=== PATIENT | female | born 1965 | race Caucasian/White ===

== ENCOUNTER 2020-11-19 15:39 | Emergency (ER) | payer OTHER ==
--- OUTSIDE RECORDS SUMMARY | 2020-11-19 15:42 | XMS REPORT | Continuity of Care Document ---
:1965 Author Organization [facility] t Address [address] [place] [address] Care Team Providers Name Role Phone Provider, Urgent Care Attending Clinician Unavailable Payers Payer Name Policy Type Policy Number Effective Date Expiration Date S ource Problems This patient has no known problems. Allergies, Adverse Reactions, Alerts Allergy Allergy Status Severity Reaction(s) Onset Inactive Treating Comm ents Source Name Type Date Date Clinician No Known DA Active U 2017-04 [facility] Allergie 2-10 Clear s 00:00: [place] 00 [facility] Medications This patient has no known medications. Procedures This patient has no known procedures. Encounters Start End Encounter Admission Attending Care Care Encounter Source Date/Time Date/Time Type Type Clinicians Facility Department ID 2020-03-18 2020-03-18 Telephone Provider, [facility] [id number] 00:00:00 00:00:00 [facility] Urgent Health [id number] Care Surgical [id number] Specialti [id number] es [address] 2020-03-16 2020-03-16 Urgent Provider, [facility] [id number] 16:11:02 16:38:49 Care [facility] Urgent Health [id number] Care [place] [id number] Professio [phone] nal 044 Office Building One Results Test Description Test Time Test Comments Results Result Comments Source D-DIMER 2018-11-26 06:09:00 Test Item Value Reference Range Interpretation Comme nts D-DIMER (test code = DDIMER) 442 ng/mLFEU 215-500 N Comment: Prothrombin 78571 genetic testFACTOR V [id number] 06:09:00 Test Item Value Reference Range Interpretation Comments FACTOR V Comment () Result: Negativ e (no mutation MUTATION (test found)Factor V Leiden is a code = FAC5M) specific mutat ion (R506Q) in thefactor V gen e that is associated with an increased risk ofvenous t hrombosis. Factor V Leiden is more resistant toina ctivation by activated prote in C. As a result, factor Vpersists in the circulation elías ding to a mildhypercoagul able state. The Leiden mutation accounts for 90%- 95% of APC resistance. Factor V Leiden has been reportedin robby ents with deep vein thrombosis , pulmonary embolus,central retinal vein occlusion, cere bral sinus thrombosisand h epatic vein thrombosis. Oth er risk factors to beconsidered in the workup for venous thro mbosis include [id number] muta tion in the factor II (prot hrombin) gene,protein S and C deficiency, and antithrombin deficiencies.An ticardiolipin antibody and marcelo pus anticoagulant a nalysismay be appropriate for certain patients, as we ll ashomocysteine levels. Contact your local [facility] forinformation on how to order additional test ing if desired.Kay ic counselors are available f or health careproviders t o discuss results at [address] [place], [place] [id number] ([phone]).Methodol ogy:DNA analysis of the Factor V gene was performed by al doris-specific PCR. The diagno stic sensitivity and specificity is>99% for both. Molecular -based testing is highly accur ate,but as in any laboratory test, diagnostic errors may occu r.All test results must be combined with clinical inform ationfor the most accurate interpretation. This test was developed and i ts performance characteristics determined by [facility]. It has not been cleared or appr ovedby the Food and Drug Administration. References:Hoda Beltran (1995) . Clin Lab Med 16:169-186.Kirby Foxley, PhD, FACMGMelis sa Roe Castro, PhD, FACMGTheresa Santiago M.S., PhD, FACM Wanda Trujillo, PhD, FACAntonia Trammell, PhD, Praveena leija PhD, FACMGPerformed At: [facility] [id number] [address] [id number] Noah Zapata MD Ph: [phone] Comment: Prothrombin genetic testANTICARDIOLIPIN [id number] 06:09:00 Test Item Value Reference Range Interpretation Comments AB CARDIOLIPIN IGA <9 APL U/mL 0-11 (test code = CARDIOAAB) Negative: <12 Indeterminate: 12 - 20 Low-Med Positiv e: >20 - 80 H igh Positive: >80Performed At : [facility] [id number] ra Moustapha MICHAELS Ph:[phone] AB CARDIOLIPIN IGG <9 GPL U/mL 0-14 (test code = CARDIOGAB) Negative: <15 Indeterminate: 15 - 20 Low-Med Positiv e: >20 - 80 H igh Positive: >80 AB CARDIOLIPIN IGM 10 MPL U/mL 0-12 (test code = CARDIOMAB) Negative: <13 Indeterminate: 13 - 20 Low-Med Positiv e: >20 - 80 H igh Positive: >80 Comment: Prothrombin genetic testFACTOR II [id number] 06:09:00 Test Item Value Reference Range Interpretation Comments FACTOR II Negative () No mutation MUTATION (test identified.Co mment:A point code = FAC2M) mutation (G202 10A) in the Factor II (prot hrombin)gene is the second most common cause of inheritedthromb osis and accounts for up to 20% of inheritedthromb ophilia. The incidence of th is mutation in theCaucasian po pulation is 1-2% and in Americans it is0.1%. Heteroz ygous carriers of this mutatio n haveprothrombin levels that are 30% higher than normal,associat ed with a 3-fold increase for ve nous thrombosis,but the risk cannot be definitely q uantified at this timedue to limited data. The Factor II/p rothrombin mutation hasolimpia n reported in patients with i diopathic portal veinthrombosis, in patients with cerebral v ein thrombosis, inpatients usin g oral contraceptives, and in patient s with placental abruptions and growthrestricti ons. Another common cause of thrombosis is theFactor V Lei den mutation (R506Q). Up to 40% of the FactorII/prothr ombin mutation carriers also c arry the FactorLeiden mu tation. Testing for other known causes ofthrombophilia may also be pursued. These include the R506Q(Leiden) m utation in the Factor V gene, plasma homocysteinelev els, as well as testing for def iciencies of antithrombinIII , protein C and protein S.Kay ic Counselors are available f or health care providersto dis cuss results at [phone]).Methodol ogy:DNA analysis of the Factor I I gene was performed by PC Ramplification followed by res triction analysis. Thedi agnostic sensitivity is >99% for both. All the tests m ustbe combined with clinical i nformation for the most accurateinterpr etation. Molecular-based testing is highly accurate ,but as in any laboratory test , diagnostic errors may occu r.This test was developed and i ts performance characteristics determined by [facility]. It has not been cleared or appr ovedby the Food and Drug Admini stration.Mauri AGUILAR, et al. Cirilo ortega. 1996; 88:7521-7960.Shruti harrison EA. Circulation. 23 07; 110:e15-e18.Juanita miner I, et al. Arterioscle r Thromb Vasc Biol. 1999;19:7 00-703.Marialuisa Moon, PhD, Adolfo Castro, PhD, FA Christine Roman M.S., P Dino, Dakota Trujillo, PhD, ANGELICA Trammell, PhD, Roger Scherer, PhD, Pedro rmed At: [facility] [address] [place], [place] [id number] r Noah Zapata MD Ph:[phone] [id number] 06:09:00 Test Item Value Reference Range Interpretation Comments [id number] I <9 0-32 INFCE Result Units: GPI IgM IGM (test code unitsThe refe rence interval = GPIIGM) reflects a 3SD or 99th percentileinter gema, which is thought to repr esent a potentiallyclin ically significant result in accor dance with theInternationa l Consensus Statement on th e classificationc riteria for definitive anti phospholipid syndrome (APS). JThromb Haem 2006;4:295-306. Performed At: [facility], [place] [id number] Gerard MD Ph:[phone] [id number]-[id number] I <9 0-20 INFCE Result Units: GPI IgG IGG (test code unitsThe refe rence interval = GPIIGG) reflects a 3SD or 99th percentileinter gema, which is thought to repr esent a potentiallyclin ically significant result in accor dance with theInternationa l Consensus Statement on e classificationc riteria for definitive anti phospholipid syndrome (APS). JThromb Haem 2006;4:295-306. [id number]-[id number] I <9 0-25 INFCE Result Units: GPI IgA IGA (test code unitsThe refe rence interval = GPIIGA) reflects a 3SD or 99th percentileinter gema, which is thought to repr esent a potentiallyclin ically significant result in accor dance with theInternationa l Consensus Statement on th e classificationc riteria for definitive anti phospholipid syndrome (APS). JThromb Haem 2006;4:295-306. [id number] 06:09:00 Test Item Value Reference Range Interpretation Comments D-DIMER (test code = DDIMER) 442 ng/mLFEU 215-500 N Comment: Prothrombin 08823 genetic testFACTOR V [id number] 06:09:00 Test Item Value Reference Range Interpretation Comments FACTOR V MUTATION (test code = FAC5M) Comment: Prothrombin 81888 genetic testANTICARDIOLIPIN [id number] 06:09:00 Test Item Value Reference Range Interpretation Comments AB CARDIOLIPIN IGA <9 APL U/mL 0-11 (test code = CARDIOAAB) Negative: <12 Indeterminate: 12 - 20 Low-Med Positiv e: >20 - 80 H igh Positive: >80Performed At : [facility] [address] [id number] ra Moustapha MICHAELS Ph:[phone] AB CARDIOLIPIN IGG <9 GPL U/mL 0-14 (test code = CARDIOGAB) Negative: <15 Indeterminate: 15 - 20 Low-Med Positiv e: >20 - 80 H igh Positive: >80 AB CARDIOLIPIN IGM 10 MPL U/mL 0-12 (test code = CARDIOMAB) Negative: <13 Indeterminate: 13 - 20 Low-Med Positiv e: >20 - 80 H igh Positive: >80 Comment: Prothrombin 35988 genetic testANTI PHOSPHOLIPID [id number] 06:09:00 Test Item Value Reference Range Interpretation Comments AB PHOSPHOLIPID IGG 3 GPS IgG 0-11 Performe d At: (test code = PHOSGAB) [facility] [address] [id number] ra Moustapha MICHAELS Ph:[phone] AB PHOSPHOLIPID IGM 11 MPS IgM 0-25 (test code = PHOSMAB) AB PHOSPHOLIPID IGA 3 APS IgA 0-20 (test code = PHOSAAB) C REACTIVE [id number] 14:08:00 Test Item Value Reference Range Interpretation Comments C REACTIVE PROTEIN (test code = 0.395 MG/DL 0.000-0.3 H CRP) ANTINUCLEAR ANTIBODIES [id number] 14:08:00 Test Item Value Reference Range Interpretation Comments MITRHA TITER (test code Negative () = ANATITR) Nega tive <1:80 Borderline 1:8 0 Positive >1:80Performed At: [facility] [address] [id number] Kyle L MD Ph:[phone] C REACTIVE [id number] 06:05:00 Test Item Value Reference Range Interpretation Comments C REACTIVE PROTEIN (test code = 0.395 MG/DL 0.000-0.3 H CRP) ANTINUCLEAR ANTIBODIES [id number] 06:05:00 Test Item Value Reference Range Interpretation Comments MIRTHA TITER (test code = ANATITR) C REACTIVE [id number] 06:44:00 Test Item Value Reference Range Interpretation Comments C REACTIVE PROTEIN (test code = 0.395 MG/DL 0.000-0.3 H CRP) ANTINUCLEAR ANTIBODIES [id number] 06:44:00 Test Item Value Reference Range Interpretation Comments MIRTHA TITER (test code = ANATITR) MIRTHA COMMENT (test code = ANACOM) [id number] 06:39:00 Test Item Value Reference Range Interpretation Comments D-DIMER (test code = DDIMER) 442 ng/mLFEU 215-500 N Comment: Prothrombin 37093 genetic testFACTOR V [id number] 06:39:00 Test Item Value Reference Range Interpretation Comments FACTOR V MUTATION (test code = FAC5M) Comment: Prothrombin genetic testANTICARDIOLIPIN [id number] 06:39:00 Test Item Value Reference Range Interpretation Comments AB CARDIOLIPIN IGA (test code = CARDIOAAB) AB CARDIOLIPIN IGG (test code = CARDIOGAB) AB CARDIOLIPIN IGM (test code = CARDIOMAB) Comment: Prothrombin genetic test- DUP VEIN [id number] 22:15:00 Name: SHERON FITZGERALD [facility] : 1965 Age/S: 53 / F [address] Unit #: [id number] Loc: [place] [address] Phys: Letty Haley MD Acct: [id number] Dis Date: Status: ADM IN PHONE #: [phone] Exam Date: 11/18/20182042 FAX #: Reason: evaluate for DVT EXAMS: CPT: [id number] DUP VEIN FIDELIA 93218 AFTER HOURSSERVICE ON: 11/18/2018 10:15 PM Bilateral Lower Extremity Venous Duplex Doppler Examination Location Code M12 History: evaluate for DVT Technique:Real-time salinas scale, Doppler spectral analysis and Doppler color flow evaluation was performed using a dedicated transducer. Graded compression with augmentation were performed. Findings: Lower extremity veins were sampled including the common femoral, femoral, proximal deep femoral, greater saphenous and popliteal veins. No echogenic filling defects are seen to suggest deep venous thrombosis. There is normal response to compression and augmentation. There are normal venous waveforms. Impression: No sonographic evidence of DVT in the imaged vessels. at 2215 Reported and signed by: Elsa Cui M.D. CC: Letty Haley MD Technologist: Mora Buckner TrnscbDate/Time: 11/18/2018 (2214) AlexandreaMA50 PAGE 1 Signed Report Name: SHERON FITZGERALD [facility] : 1965 Age/S: 53 / F [id number] Unit #: [id number] Loc: [place] [address] Phys: Letty Haley MD Acct: [id number] Dis Date: Status: ADM IN PHONE #: [phone] Exam Date: 11/18/20182042 FAX#: Reason: evaluate for DVT EXAMS: CPT: [id number] DUP VEIN [id number] <Continued> Orig Print D/T: S: 11/18/2018 (3817) Probe: PAGE 2 Signed Report PROTHROMBIN [id number] 21:23:00 Test Item Value Reference Range Interpretation Comments PT PATIENT (test code = PTP) 12.3 SECONDS 9.3-12.9 N INTERNATIONAL NORMAL RATIO 1.07 INR Unit 0.8-1.2 N (test code = INR) COMPREHENSIVE METABOLIC [id number] 21:06:00 Test Item Value Reference Range Interpretation Comments SODIUM (test code = NA) 141 mmol/L 134-147 N POTASSIUM (test code = 3.8 mmol/L 3.4-5.0 N K) CHLORIDE (test code = 105 mmol/L 100-108 N CL) CARBON DIOXIDE (test 28 mmol/L 21-32 N code = CO2) ANION GAP (test code = 8.0 GAP calc 4.0-15.0 N GAP) GLUCOSE (test code = 88 MG/DL 70-110 N GLU) BLOOD UREA NITROGEN 11 MG/DL 7-18 N (test code = BUN) GLOMERULAR FILTRATION >=60 max estimate >60 RATE (test code = GFR) estGFR CREATININE (test code = 0.7 MG/DL 0.6-1.0 N CREAT) TOTAL PROTEIN (test code 7.2 G/DL 6.4-8.2 N = PROT) ALBUMIN (test code = 3.7 G/DL 3.4-5.0 N ALB) GLOBULIN (test code = 3.5 GM/dL GLOB) ALBUMIN/GLOBULIN RATIO 1.1 RATIO 1.2-2.2 L (test code = A/G) CALCIUM (test code = CA) 8.8 MG/DL 8.5-10.1 N BILIRUBIN TOTAL (test 0.50 MG/DL 0.2-1.2 N code = BILT) SGOT/AST (test code = 20 Unit/L 15-37 N AST) SGPT/ALT (test code = 31 Unit/L 12-78 N ALT) ALKALINE PHOSPHATASE 67 Unit/L 45-117 N TOTAL (test code = ALKP) [id number] 21:06:00 Test Item Value Reference Range Interpretation Comments MAGNESIUM (test code = MAG) 2.1 MG/DL 1.8-2.4 N CBC W/AUTO [id number] 20:46:00 Test Item Value Reference Range Interpretation Comments WHITE BLOOD CELL (test code = 8.1 K/mm3 3.5-11.0 N WBC) RED BLOOD CELL (test code = RBC) 4.61 M/mm3 4.70-6.10 L HEMOGLOBIN (test code = HGB) 13.4 G/DL 10.4-14.9 N HEMATOCRIT (test code = HCT) 40.1 % 31.5-44.1 N MEAN CELL VOLUME (test code = 87.0 Fl 84.5-98.6 N MCV) MEAN CELL HGB (test code = MCH) 29.1 pg 27.0-34.2 N MEAN CELL HGB CONCETRATION (test 33.4 G/DL 31.5-34.0 N code = MCHC) RED CELL DISTRIBUTION WIDTH (test 13.2 SD 11.5-14.5 N code = RDW) PLATELET COUNT (test code = PLT) 281.0 K/mm3 150-450 N MEAN PLATELET VOLUME (test code = 9.70 fL 7.0-10.5 N MPV) NEUTROPHIL % (test code = NT%) 73.2 % 40-76 N LYMPHOCYTE % (test code = LY%) 20.5 % 20.5-51.1 N MONOCYTE % (test code = MO%) 5.6 % 1.7-9.3 N EOSINOPHIL % (test code = EO%) 0.6 % 0.0-6.0 N BASOPHIL % (test code = BA%) 0.1 % 0.0-2.0 N NEUTROPHIL # (test code = NT#) 5.93 K/mm3 1.8-7.6 N LYMPHOCYTE # (test code = LY#) 1.7 K/mm3 0.6-3.2 N MONOCYTE # (test code = MO#) 0.5 K/mm3 0.3-1.1 N EOSINOPHIL # (test code = EO#) 0.1 K/mm3 0.0-0.4 N BASOPHIL # (test code = BA#) 0.0 K/mm3 0.0-0.1 N MANUAL DIFF REQUIRED (test code = NO DIFF/SCN CRITERIA MDIFF) UTERUS,OTHER THAN PROLAPSE/[id number] 13:46:00 RUN DATE: 03/17/18 [facility] PAGE 1 RUN TIME: 1545 Specimen Inquiry RUN USER: INTERFACE PATIENT: SHERON FITZGERALD [facility] [place] U #: [id number] AGE/SX: 52/F ROOM: [facility] RE03/15/18REG DR: Barbara Golden MD : [birth year] BED: A DIS: 03/16/18 STATUS: DIS Swapna TLOC: SPEC #: [id number] RECD: 03/15/18 STATUS: MIGUEL WASHBURN #: [id number] CHANDAN: 03/15/18- SUBM DR: Barbara Golden MD ENTERED: 03/15/18 SP TYPE: UTERUSOTH OTHR DR: ORDERED: LEVEL V SURGICA/2 CODES: [id number] - UTERUS, NOS [id number] - MONS PUBIS PROCEDURES: LEVEL V FUNEZ RGICA (Incomplete) TISSUES: UTERUS, NOS - UTERUS, CERVIX, BILATERAL FALLOPIAN TUBES MONS PUBIS - RIGHT MONS SKIN TAG CLINICAL HISTORY 52 year old, menorrhagia with irregular cycles (kr) FINAL DIAGNOSIS Uterus, bilateral fallopian tubes, hysterectomy and bilateral salpingectomy: - mild nonspecific chronic cervicitis, no dysplasia identified - benig n inactive endometrium - adenomyosis - leiomyomas of myometrium and subserosa -previously ligated right fallopian tube, no significant pathologic alteration - previously ligated left fallopian tube with benign paratubal cyst Right mons skin tag, excision: - skin tag with focal hyperkeratosis and koilocytic change Tissue code 1 CPT code(s): 44040, 34939 [facility]ner GROSS DESCRIPTION ANATOMIC SOURCE OF TISSUE (per Requisition): 1. Uterus, cervix, bilateral tubes with left tube tag 2. Right mons skin tag Each specimen is labeled with the patient's name and medical record number. Specimen #1 is designated "uterus, cervix, and bilateral tube, and left tube tag" and consists of a 10 x 9 x 7 cm, 221 gm hysterectomy specimenand two separate segments of fallopian tube with fimbria attached and a tag on the left side. The serosa is lake, smooth, and glistening and contains subserosal firm nodules measuring CONTINUED ON NEXT PAGE RUN DATE: 03/17/18 [facility] PAGE 2 RUN TIME: 1545 Specimen Inquiry RUN USER: INTERFACE SPEC #: [id number] PATIENT: SHERON FITZGERALD #[id number] (Continued) GROSS DESCRIPTION (Continued) up to 4.5 cm. The cervical external os measures 1.0 cm. The portio vaginalis measures 4.0 cm. Window Glazier Helper sections are submitted labeled A. The endometrium measures 0.1 cm and c ontains submucosal firm nodules measuring up to 2.8 cm. The myometrium measures 4.0 cm and contains additional lake-white, firm nodules measuring up to 3.5 cm. No degenerative change in the leiomyomas is noted. The myometrium also contains ill-defined, firm lesions measuring up to 0.8 cm. Window Glazier Helper sections are submitted labeled B and C. The right fallopian tube with fimbria and healed previous tubal ligation measures 5 x 0.7 x 0.7 cm and contains paratubal yellow tissue measuring up to 1 cm. The ligation site contains two identical clips, each measuring 1.2 cm. The entire fimbria and two cross-sections of fallopian tube are submitted and labeled D. The left fallopian tube with fimbria and healed previous tubal ligation measures 7 x 0.6 x 0.6 cm and contains semi-translucent paratubal cysts measuring up to 0.5 cm. The ligation site contains two identical clips, each measuring 1.2 cm. The entire fimbria and one cross-section of fallopian tube with the cysts are submitted and labeled E. Specimen #2 is designated "right mons skin tag" and consistsof a 0.2 cm portion of dark, wrinkled, hairless skin papule and is submitted and labeled F. alexy 03/16/18 Signed Kayley Arreola MD 03/17/18 1346 END OF REPORT
[2020-11-19 16:51] LABS: Hematocrit 37.6 % (36.0-45.0); MPV 7.7 fL (7.6-11.3); RBC Red Blood Cell Count 4.44 M/uL (3.86-4.86)
[2020-11-19 16:52] LABS: Absolute Lymphocytes (CBC) 2.1 K/uL (0.7-4.9); Basophils % 0.7 % (0-1.3)
[2020-11-19 16:58] LABS: Protime INR 0.94
[2020-11-19 17:09] LABS: ALT/SGPT 22 U/L (12-78); AST/SGOT 14 U/L (15-37); Albumin 3.6 g/dL (3.4-5.0); Alkaline Phosphatase 60 U/L (45-117); BUN Blood Urea Nitrogen 12 mg/dL (7-18); Bicarbonate 30 mmol/L (21-32); Bilirubin Direct < 0.1 mg/dL (0-0.2); Bilirubin Total 0.3 mg/dL (0.2-1.0); Glucose Level 84 mg/dL (74-106); Magnesium 2.2 mg/dL (1.8-2.4); NT PRO-BNP 76 pg/mL (<125); Sodium Level 139 mmol/L (136-145); Troponin (Emerg Dept Use Only) < 0.02 ng/mL (0.0-0.045)
--- NOTE | 2020-11-19 17:22 | RAD REPORT ---
EXAM DESCRIPTION: RAD - Chest Single View - 11/19/2020 5:03 pm CLINICAL HISTORY: CHEST PAIN COMPARISON: <Comparisons> FINDINGS: No evidence of edema or pneumonia. The heart size is within normal limits.No acute osseous abnormality. No significant pleural effusions or pneumothorax. IMPRESSION: No acute cardiopulmonary disease.
--- NOTE | 2020-11-19 18:03 | RAD REPORT ---
EXAM DESCRIPTION: CT - Chest For Pe Angio - 11/19/2020 5:48 pm CLINICAL HISTORY: Chest pain;Dyspnea COMPARISON: No comparisonsNo comparisons FINDINGS: Chest Wall: No suspicious thyroid nodules or pathologic lymphadenopathy. Lungs: No acute abnormality. Pleura: Trace pleural effusions. Mediastinum/dalila: No pathologic lymphadenopathy. Pulmonary arteries/Aorta: No filling defect identified. No aortic aneurysm. Note that the segmental a nd subsegmental pulmonary arteries are not well evaluated due to motion. Heart: No significant pericardial effusion. Normal heart size. Upper abdomen: No acute abnormality. Bones: No acute abnormality. IMPRESSION: Negative for pulmonary embolism. Limited evaluation of the segmental and subsegmental pu lmonary arteries due to motion. Trace pleural effusions.
--- NOTE | 2020-11-19 20:30 | ER ---
Nurse's Notes [facility] Name: Pretty Dia Age: 55 yrs Sex: Female : 1965 Arrival Date: 11/19/2020 Time: 15:42 Bed DIS11 Private MD: Diagnosis: Chest pain, unspecified;Pain in left leg Presentation: 11/19 16:26 Chief complaint: Patient states: Intermittent, sharp left sided chest pain, jl7 non-radiating, started yesterday, hx of PE, Dr. Buckner told me to come in and get checked out. Coronavirus screen: Client denies travel out of the [place] in the last 14 days. At this time, the client does not indicate any symptoms associated with coronavirus-19. Ebola Screen: No symptoms or risks identified at this time. Initial Sepsis Screen: Does the patient meet any 2 criteria? No. Patient's initial sepsis screen is negative. Does the patient have a suspected source of infection? No. Patient's initial sepsis screen is negative. Risk Assessment: Do you want to hurt yourself or someone else? Patient reports no desire to harm self or others. Onset of symptoms was November 18, 2020. Care prior to arrival: None. 16:26 Method Of Arrival: Ambulatory jl7 16:26 Acuity: ALEX 2 jl7 Triage Assessment: 16:30 General: Appears in no apparent distress. uncomfortable, Behavior is calm, cooperative, jl7 appropriate for age. Pain: Complains of pain in anterior aspect of left upper chest Pain does not radiate. Pain currently is 0 out of 10 on a pain scale. at worst was 7 out of 10 on a pain scale. Quality of pain is described as sharp, Pain began suddenly. Neuro: Level of Consciousness is awake, alert, obeys commands, Oriented to person, place, time, situation. Cardiovascular: Patient's skin is warm and dry. Respiratory: Airway is patent Respiratory effort is even, unlabored, Respiratory pattern is regular, symmetrical. Derm: Skin is pink, warm \T\ dry. SWAMPER: 16:30 LMP N/A - Hysterectomy jl7 Historical: - Allergies: 16:30 No Known Allergies; jl7 - Home Meds: 16:30 None [Active]; jl7 - PMHx: 16:30 PE; DVT; jl7 - PSHx: 16:30 Ligation of fallopian tube; Total abdominal hysterectomy; jl7 - Immunization history:: Adult Immunizations up to date, Client reports receiving the 2nd dose of the Covid vaccine, Moderna. - Social history:: Smoking status: Patient denies any tobacco usage or history of. - Family history:: not pertinent. Screenin:35 Abuse screen: Denies threats or abuse. Denies injuries from another. Nutritional ld1 screening: No deficits noted. Tuberculosis screening: No symptoms or risk factors identified. Fall Risk None identified. Assessment: 19:35 General: Appears in no apparent distress. comfortable, Behavior is calm, cooperative, ld1 appropriate for age. Pain: Complains of pain in chest Pain does not radiate. Pain currently is 8 out of 10 on a pain scale. Quality of pain is described as throbbing, Pain began 4 hours ago. Is continuous. 19:35 Neuro: Level of Consciousness is awake, alert, obeys commands, Oriented to person, ld1 place, time, situation. Cardiovascular: Capillary refill < 3 seconds Patient's skin is warm and dry. Respiratory: Airway is patent Respiratory effort is even, unlabored, Respiratory pattern is regular, symmetrical. GI: No signs and/or symptoms were reported involving the gastrointestinal system. : No signs and/or symptoms were reported regarding the genitourinary system. EENT: No signs and/or symptoms were reported regarding the EENT system. Derm: No signs and/or symptoms reported regarding the dermatologic system. Vital Signs: 16:26 BP 143 / 82; Pulse 62; Resp 17; Temp 97.1; Pulse Ox 99% ; Weight 112.49 kg; Height 5 jl7 ft. 7 in. (170.18 cm); Pain 7/10; 19:35 BP 138 / 78; Pulse 60; Resp 18; Pulse Ox 99% on R/A; ld1 16:26 Body Mass Index 38.84 (112.49 kg, 170.18 cm) jl7 ED Course: 15:42 Patient arrived in ED. am2 16:30 Triage completed. jl7 16:30 Arm band placed on right wrist. jl7 16:39 Inserted saline lock: 20 gauge in left antecubital area, using aseptic technique. Blood jl7 collected. 17:03 XRAY Chest (1 view) In Process Unspecified. EDMS 17:48 CT Chest For PE Angio In Process Unspecified. EDMS 19:24 Carlitos Valencia MD is Attending Physician. [facility] 19:35 Patient has correct armband on for positive identification. monitor and storage bin tender on. Pulse ld1 ox on. NIBP on. 19:35 No provider procedures requiring assistance completed. IV discontinued, intact, ld1 bleeding controlled, No redness/swelling at site. Patient maintains SpO2 saturation greater than 95% on room air. 20:21 US Extremity Venous W Compression Avi In Process Unspecified. EDMS 20:21 Emeli William, RN is Primary Nurse. ld1 20:29 Colt Patino MD is Referral Physician. [facility] Administered Medications: 20:30 Drug: Aspirin Chewable Tablet 324 mg Route: PO; ld1 Outcome: 20:29 Discharge ordered by . [facility] 20:37 Discharged to home ambulatory. ld1 20:37 Condition: stable ld1 20:37 Discharge instructions given to patient, Instructed on discharge instructions, follow up and referral plans. Demonstrated understanding of instructions, follow-up care. 20:37 Patient left the ED. ld1 Signatures: Dispatcher [employer] EDAK Carlitos Valencia MD MD cha Leal, Jahala, RN RN jl7 Alana Jameson Lauren, RN RN ld1
--- NOTE | 2020-11-19 20:31 | EDPHYS ---
Physician Documentation [facility] Name: Pretty Dia Age: 55 yrs Sex: Female : 1965 Arrival Date: 11/19/2020 Time: 15:42 Bed DIS11 Private MD: ED Physician Carlitos Valencia HPI: 11/19 19:44 This 55 yrs old Female presents to ER via Ambulatory with complaints of Chest sulma Pain - sharp. 19:44 This 55 yrs old Female presents to ER via Ambulatory with complaints of Chest sulma Pain - sharp. 19:44 The patient or guardian reports chest pain that is located primarily in the anterior sulma chest wall, left. Onset: 1 day(s) ago. The pain does not radiate. Associated signs and symptoms: The patient has no apparent associated signs or symptoms. The chest pain is described as sharp. Modifying factors: The symptoms are alleviated by nothing. the symptoms are aggravated by nothing. Severity of pain: At its worst the pain was mild in the emergency department the pain has improved mildly. CLIENT LIAISON: 16:30 LMP N/A - Hysterectomy jl7 Historical: - Allergies: 16:30 No Known Allergies; jl7 - Home Meds: 16:30 None [Active]; jl7 - PMHx: 16:30 PE; DVT; jl7 - PSHx: 16:30 Ligation of fallopian tube; Total abdominal hysterectomy; jl7 - Immunization history:: Adult Immunizations up to date, Client reports receiving the 2nd dose of the Covid vaccine, Moderna. - Social history:: Smoking status: Patient denies any tobacco usage or history of. - Family history:: not pertinent. ROS: 19:44 Constitutional: Negative for fever, chills, and weight loss, Eyes: Negative for injury, sulma pain, redness, and discharge, ENT: Negative for injury, pain, and discharge, Neck: Negative for injury, pain, and swelling, Respiratory: Negative for shortness of breath, cough, wheezing, and pleuritic chest pain, Abdomen/GI: Negative for abdominal pain, nausea, vomiting, diarrhea, and constipation, Back: Negative for injury and pain, : Negative for injury, bleeding, discharge, and swelling, Skin: Negative for injury, rash, and discoloration, Neuro: Negative for headache, weakness, numbness, tingling, and seizure, Psych: Negative for depression, anxiety, suicide ideation, homicidal ideation, and hallucinations, Allergy/Immunology: Negative for hives, rash, and allergies, Endocrine: Negative for neck swelling, polydipsia, polyuria, polyphagia, and marked weight changes, Hematologic/Lymphatic: Negative for swollen nodes, abnormal bleeding, and unusual bruising. 19:44 Cardiovascular: Positive for chest pain, of the anterior aspect of left upper chest. 19:44 MS/extremity: Positive for pain, of the left oh. Exam: 19:44 Constitutional: This is a well developed, well nourished patient who is awake, alert, sulma and in no acute distress. Head/Face: Normocephalic, atraumatic. Eyes: Pupils equal round and reactive to light, extra-ocular motions intact. Lids and lashes normal. Conjunctiva and sclera are non-icteric and not injected. Cornea within normal limits. Periorbital areas with no swelling, redness, or edema. ENT: Nares patent. No nasal discharge, no septal abnormalities noted. Tympanic membranes are normal and external auditory canals are clear. Oropharynx with no redness, swelling, or masses, exudates, or evidence of obstruction, uvula midline. Mucous membranes moist. Neck: Trachea midline, no thyromegaly or masses palpated, and no cervical lymphadenopathy. Supple, full range of motion without nuchal rigidity, or vertebral point tenderness. No Meningismus. Chest/axilla: Normal chest wall appearance and motion. Nontender with no deformity. No lesions are appreciated. Cardiovascular: Regular rate and rhythm with a normal S1 and S2. No gallops, murmurs, or rubs. Normal PMI, no JVD. No pulse deficits. Respiratory: Lungs have equal breath sounds bilaterally, clear to auscultation and percussion. No rales, rhonchi or wheezes noted. No increased work of breathing, no retractions or nasal flaring. Abdomen/GI: Soft, non-tender, with normal bowel sounds. No distension or tympany. No guarding or rebound. No evidence of tenderness throughout. Back: No spinal tenderness. No costovertebral tenderness. Full range of motion. Skin: Warm, dry with normal turgor. Normal color with no rashes, no lesions, and no evidence of cellulitis. MS/ Extremity: Pulses equal, no cyanosis. Neurovascular intact. Full, normal range of motion. Neuro: Awake and alert, GCS 15, oriented to person, place, time, and situation. Cranial nerves II-XII grossly intact. Motor strength 5/5 in all extremities. Sensory grossly intact. Cerebellar exam normal. Normal gait. Psych: Awake, alert, with orientation to person, place and time. Behavior, mood, and affect are within normal limits. 19:44 Musculoskeletal/extremity: ROM: no acute changes, intact in all extremities, Circulation is intact in all extremities. Sensation intact. Compartment Syndrome exam of affected extremity: is normal. Joints: All joints are normal except Weight bearing: able to fully bear weight, DVT Exam: no swelling, no tenderness, negative Homans' sign noted on exam, no appreciated bluish discoloration, no erythema, no increased warmth, pain, of the left leg, of the posterior aspect of left knee. 19:52 ECG was reviewed by the Attending Physician. [facility] Vital Signs: 16:26 BP 143 / 82; Pulse 62; Resp 17; Temp 97.1; Pulse Ox 99% ; Weight 112.49 kg; Height 5 jl7 ft. 7 in. (170.18 cm); Pain 7/10; 19:35 BP 138 / 78; Pulse 60; Resp 18; Pulse Ox 99% on R/A; ld1 16:26 Body Mass Index 38.84 (112.49 kg, 170.18 cm) jl7 MDM: 19:24 Patient medically screened. sulma 19:47 Differential diagnosis: abnormal EKG, acute pericarditis, anxiety, coronary artery sulma disease chest wall pain, cholecystitis, Cholelithiasis hiatal hernia, pancreatitis, pulmonary embolus, stable angina, unstable angina. HEART Score: History: Slightly Suspicious (0), ECG: Normal (0), Age: > 45 and < 65 years (1), Risk Factors: 1 or 2 risk factors (1), [+ Family HX] [Obesity] Troponin: < or = 1 x Normal Limit (0), Total Score = 1. The patient was given aspirin in the Emergency Department. The patient's deep vein thrombosis risk score was calculated as follows: the patient has localized tenderness along the distribution of the deep venous system (1.0 Pts) Total Score: 1 to 2 points. This patient was found to be at moderate risk for a deep vein thrombosis by using the Well's assessment criteria. The patient's pulmonary embolism risk score was calculated as follows: the patient has a history of a previous deep vein thrombosis or pulmonary embolism (1.5 Pts) Total Score: 0-2 points. This patient was found to be at low risk for a pulmonary embolism by using the Well's assessment criteria. OSMANI Risk Score: TOTAL SCORE = 0. Data reviewed: vital signs, nurses notes, lab test result(s), EKG, radiologic studies, CT scan, plain films, ultrasound. Data interpreted: teletypesetter monitor: rate is 60 beats/min, rhythm is regular, Pulse oximetry: on room air is 99 %. Test interpretation: by ED physician or midlevel provider: ECG, plain radiologic studies. 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 11/19 16:35 Order name: Basic Metabolic Panel [facility] 11/19 16:35 Order name: CBC with Diff [facility] 11/19 16:35 Order name: LFT's [facility] 11/19 16:35 Order name: Magnesium [facility] 11/19 16:35 Order name: NT PRO-BNP [facility] 11/19 16:35 Order name: PT-INR; Complete Time: 17:21 [facility] 11/19 16:35 Order name: Troponin (emerg Dept Use Only); Complete Time: 17:21 [facility] 11/19 16:35 Order name: XRAY Chest (1 view); Complete Time: 18:18 [facility] 11/19 16:35 Order name: D-Dimer; Complete Time: 17:21 [facility] 11/19 16:36 Order name: Basic Metabolic Panel; Complete Time: 17:21 [facility] 11/19 16:36 Order name: CBC with Automated Diff; Complete Time: 17:21 [facility] 11/19 16:36 Order name: Liver (Hepatic) Function; Complete Time: 17:21 [facility] 11/19 16:36 Order name: Magnesium; Complete Time: 17:21 [facility] 11/19 16:36 Order name: NT PRO-BNP; Complete Time: 17:21 [facility] 11/19 16:35 Order name: EKG; Complete Time: 16:36 jl11/19 16:35 Order name: EKG - Nurse/Tech; Complete Time: 16:36 11/19 16:35 Order name: IV Saline Lock; Complete Time: 16:36 11/19 16:35 Order name: Labs collected and sent; Complete Time: 16:36 11/19 16:35 Order name: O2 Per Protocol; Complete Time: 16:36 [facility] 11/19 16:35 Order name: O2 Sat Monitoring; Complete Time: 16:36 11/19 17:22 Order name: CT Chest For PE Angio; Complete Time: 18:18 [facility] 11/19 19:44 Order name: US Extremity Venous W Compression Avi sulma EC:52 Rate is 59 beats/min. Rhythm is regular. QRS [place] is Normal. [place] interval is normal. QRS sulma interval is normal. QT interval is normal. No Q waves. T waves are Normal. No ST changes noted. Clinical impression: NSR w/ Non-specific ST/T Changes and No evidence of ischemia. Interpreted by me. Reviewed by me. Administered Medications: 20:30 Drug: Aspirin Chewable Tablet 324 mg Route: PO; ld1 Disposition Summary: 11/19/20 20:29 Discharge Ordered Location: Home sulma Problem: new sulma Symptoms: have improved sulma Condition: Stable sulma Diagnosis - Chest pain, unspecified sulma - Pain in left leg sulma Followup: sulma - With: Private Physician - When: 2 - 3 days - Reason: Recheck today's complaints, Continuance of care, Re-evaluation by your physician Followup: sulma - With: - When: 2 - 3 days - Reason: Recheck today's complaints, Continuance of care, Re-evaluation by your physician Discharge Instructions: - Discharge Summary Sheet sulma - Nonspecific Chest Pain, Adult sulma - Chest Wall Pain sulma - Musculoskeletal Pain sulma - Aspirin and Your Heart sulma Forms: - Medication Reconciliation Form sulma - Thank You Letter sulma - Antibiotic Education sulma - Prescription Opioid Use sulma Signatures: Dispatcher [employer] Pia Mcguire FNP-C FNP-Carlitos Wilson MD MD cha Roszak, Josh, PA PA [id number] Ana Gaviria RN RN jl7 Emeli William RN RN ld1
--- NOTE | 2020-11-19 20:38 | RAD REPORT ---
EXAM DESCRIPTION: US - Extrem Venous W Compress Avi - 11/19/2020 8:21 pm CLINICAL HISTORY: Pain COMPARISON: None. TECHNIQUE: Real-time sonographic evaluation of the bilateral lower extremity deep venous systems was performed. FINDINGS: Normal compressibility, flow augmentation, phasic flow and spontaneous flow is identified in both the left and right lower extremity deep venous systems. No intraluminal filling defects seen. IMPRESSION: No DVT in either lower extremity.
[2020-11-19 20:49] VITALS: TEMP 97.1; O2SAT 99
[2020-11-19 20:51] VITALS: BP 138/78
[2020-11-19] MEDS ORDERED: ASPIRIN 81 MG CHEWABLE TABLET ONE (20:51)
--- NOTE | 2020-11-20 16:27 | EKG ---
Test Date: 2020-11-19 Test Time: 16:30:49 [employer] Salesperson: TAJ MEASUREMENT RESULTS: Intervals: Rate: 59 MT: 140 QRSD: 76 QT: 452 QTc: 447 [place]: P: 37 MT: 140 QRS: 61 T: 65 INTERPRETIVE STATEMENTS: Sinus bradycardia Low voltage QRS Borderline ECG No previous ECG available for comparison Electronically Signed On 11-20-20 16:24:09 CDT by Colt Patino
== END 2020-11-19 20:37 | disposition home or self-care (01) ==
LOC: ER 15:39
DX: R07.89 Other chest pain (principal); M79.605 Pain in left leg; Z86.718 Personal history of other venous thrombosis and embolism
CPT/HCPCS: 93005; 85025; 80048; 36415; 83735; 85610; 85379; 80076; 84484; 83880; 71275; 71045; 93970; 99285; Q9967